=== PATIENT | male | born 1990 | race African-American/Black ===

== ENCOUNTER 2017-10-20 19:43 | Inpatient (IN) | payer OTHER ==
[~2017-10-20] VITALS: Ht 188 cm; Wt 133.5 kg
--- NOTE | 2017-10-20 20:14 | PHYS DOC ---
Past History Past Medical History: Hypertension, Seizure Adult General Chief Complaint Chief Complaint: ALTERED MENTAL STATUS HPI HPI Patient is a 27 year old M who presents with unresponsive from the skilled nursing. Patient was found in the showers with his close on unresponsive. For EMS patient did make some purposeful movements however upon arrival to the emergency room the patient was not responsive. Ammonia smelling salts were placed in the patient's nose in which he woke up however still not talking. Officers were at bedside who noted no trauma. Review of Systems Review of Systems Unable to obtain secondary to patient's clinical condition. All other systems were reviewed and found to be within normal limits, except as documented in this note. Allergies Allergies Allergies Coded Allergies Type Severity Reaction Last Updated Verified Penicillins Allergy Unknown Unknown 10/20/17 Yes amoxicillin Allergy Unknown Unknown 10/20/17 Yes Physical Exam Physical Exam GEN.: Severe distress. Unresponsive HEENT: Head is normocephalic, atraumatic NECK: Supple. LUNGS: CTAB. HEART: RRR, S1, S2 present. Peripheral pulses intact ABDOMEN: Soft, nontender. Positive bowel sounds. EXTREMITIES: Without any cyanosis. NEUROLOGIC: Unresponsive PSYCHIATRIC: Unable to obtain SKIN: No ulcerations Current Patient Data Vital Signs Vital Signs Date Time Temp Pulse Resp B/P (MAP) Pulse Ox O2 Delivery O2 Flow Rate FiO2 10/20/17 19:55 98.8 90 20 100 Room Air EKG EKG 2004: EKG shows normal sinus rhythm rate is 67 no STEMI[] Radiology/Procedures Radiology/Procedures Chest x-ray NAD CT scan head/C-spine no obvious abnormalities per radiology[] Course & Med Decision Making Course & Med Decision Making Pertinent Labs and Imaging studies reviewed. (See chart for details) ED course: Patient was seen and examined in the emergency room upon arrival an overdose workup was ordered along with a CT scan of the head Ammonia salts is placed in the right naris in which the patient woke up however is still not communicating Updated guards on lab results and plan to admit for altered mental status and possible toxic ingestion Patient will wake up periodically attempting to grab into thin air 2140: Discussed CC/HP/PMH with Dr. Esteban and recommends admit MDM: After reviewing the chart, CC/HPI/PMH, physical exam, [lab results], [ radiological results], due to the fact the patient's having continual altered mental status the patient will be admitted to the hospital for further evaluation and management and placed in ICU. At this time I do not believe the patient needs to be intubated and is protecting his airway. I believe the patient has a toxic ingestion. [] [] Dragon Disclaimer Dragon Disclaimer This electronic medical record was generated, in whole or in part, using a voice recognition dictation system. Departure Departure: Impression: Primary Impression: Altered mental status Additional Impression: Drug overdose Disposition: 09 ADMITTED INPATIENT Admitting Physician: Maximo Esteban Condition: GUARDED Problem Qualifiers RONEY HUDDLESTON DO Oct 20, 2017 20:14
[2017-10-20] MEDS ORDERED: LISI40TA PO (20:53)
[2017-10-20] MEDS ORDERED: GABA600T2 PO (20:53)
[2017-10-20] MEDS ORDERED: DIVA500T17 PO (20:53)
[2017-10-20 20:57] LABS: BASO % 1 % (0-3); EOS # 0.1 x10^3/uL (0.0-0.7); EOS % 3 % (0-3); HEMATOCRIT 46.2 % (39.0-53.0); HEMOGLOBIN 15.4 g/dL (13.0-17.5); LYMPH # 1.9 x10^3/uL (1.0-4.8); LYMPH % 40 % (24-48); MEAN CORPUSCULAR HEMOGLOBIN 29 pg (25-35); MEAN CORPUSCULAR HGB CONC 33 g/dL (31-37); MEAN CORPUSCULAR VOLUME 86 fL (79-100); MONO # 0.5 x10^3/uL (0.0-1.1); MONO % 11 % (0-9); NEUT # 2.1 x10^3uL (1.8-7.7); NEUT % 45 % (31-73); PLATELET COUNT 238 x10^3/uL (140-400); RED BLOOD COUNT 5.35 x10^6/uL (4.30-5.70); RED CELL DISTRIBUTION WIDTH 12.6 % (11.5-14.5); WHITE BLOOD COUNT 4.7 x10^3/uL (4.0-11.0)
[2017-10-20 21:12] LABS: AMPHETAMINE/METHAMPHETAMINE NEG (NEG); BARBITURATES NEG (NEG); BENZODIAZEPINES NEG (NEG); CANNABINOIDS NEG (NEG); COCAINE NEG (NEG); METHADONE NEG (NEG); OPIATES NEG (NEG); PHENCYCLIDINE NEG (NEG)
[2017-10-20 21:16] LABS: ALBUMIN 4.1 g/dL (3.4-5.0); ALBUMIN/GLOBULIN RATIO 1.1 (1.0-1.7); CALCIUM 9.3 mg/dL (8.5-10.1); CREATININE 1.2 mg/dL (0.7-1.3); GFR 87.2; POTASSIUM 3.6 mmol/L (3.5-5.1); TOTAL BILIRUBIN 0.3 mg/dL (0.2-1.0)
--- NOTE | 2017-10-20 21:25 | RAD ---
PQRS Compliance Statement: One or more of the following individualized dose reduction techniques were utilized for this examination: 1. Automated exposure control 2. Adjustment of the mA and/or kV according to patient size 3. Use of iterative reconstruction technique CT HEAD AND CERVICAL SPINE WITHOUT CONTRAST History: Found unresponsive Comparison: CT head and cervical spine without contrast December 25, 2016. MR brain December 13, 2016. Procedure: Axial images are obtained of the head from the skull base through the vertex without IV contrast. Noncontrast helical CT of the cervical spine was performed. Axial, sagittal, and coronal reconstructions were obtained. Findings: The ventricles and sulci are normal for the patient's age. Stable cystic lesion adjacent to the left frontal horn. Please refer to previous MR brain report for further details. No mass-effect, midline shift, hemorrhage or obvious acute infarction is identified. Basilar cisterns are patent. Bone windows demonstrate no significant calvarial abnormality. Mucosal thickening bilateral maxillary sinuses. Mastoid air cells are well aerated. There is no evidence of acute fracture or acute malalignment of the cervical spine. The vertebral body height and alignment are maintained. The facet joints are intact. Visualized soft tissues of the neck demonstrate no significant abnormalities. The visualized lung apices are clear. IMPRESSION: 1. No acute intracranial abnormality. 2. Stable small cystic lesion adjacent to the left frontal horn. Please refer to previous MR brain report for further details. 3. No acute fracture of the cervical spine. Electronically signed by: Jaswinder Matt MD (10/20/2017 9:22 PM) [facility]
[2017-10-20] MEDS ORDERED: ACETAMINOPHEN 325 MG TABLET PO PRN (21:45)
[2017-10-20] MEDS ORDERED: IV NORMAL SALINE 1,000ML 1,000 ML IV ONE (21:45)
[2017-10-20] MEDS ORDERED: ONDANSETRON PF 4 MG/2 ML VIAL. IV PRN (21:45)
--- NOTE | 2017-10-20 22:58 | EKG ---
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
[2017-10-20] MEDS: IV NORMAL SALINE 1,000ML 1,000 ML IV SCH (23:00)
[2017-10-20 23:03] VITALS: BP 158/91
[2017-10-21] VITALS (21 sets, daily range): BP systolic 103–199; BP diastolic 44–123
[2017-10-21] MEDS: IV NORMAL SALINE 1,000ML 1,000 ML IV SCH ×3 (01:08→17:45)
[2017-10-21 06:35] LABS: BASO % 1 % (0-3); EOS # 0.2 x10^3/uL (0.0-0.7); EOS % 4 % (0-3); HEMATOCRIT 42.7 % (39.0-53.0); HEMOGLOBIN 14.1 g/dL (13.0-17.5); LYMPH # 2.1 x10^3/uL (1.0-4.8); LYMPH % 36 % (24-48); MEAN CORPUSCULAR HEMOGLOBIN 29 pg (25-35); MEAN CORPUSCULAR HGB CONC 33 g/dL (31-37); MEAN CORPUSCULAR VOLUME 86 fL (79-100); MONO # 0.7 x10^3/uL (0.0-1.1); MONO % 13 % (0-9); NEUT # 2.6 x10^3uL (1.8-7.7); NEUT % 47 % (31-73); PLATELET COUNT 221 x10^3/uL (140-400); RED BLOOD COUNT 4.93 x10^6/uL (4.30-5.70); RED CELL DISTRIBUTION WIDTH 12.6 % (11.5-14.5); WHITE BLOOD COUNT 5.6 x10^3/uL (4.0-11.0)
[2017-10-21 06:38] LABS: ALBUMIN 3.4 g/dL (3.4-5.0); CALCIUM 8.7 mg/dL (8.5-10.1); CREATININE 0.9 mg/dL (0.7-1.3); GFR 121.6; POTASSIUM 3.6 mmol/L (3.5-5.1); TOTAL BILIRUBIN 0.6 mg/dL (0.2-1.0); TOTAL PROTEIN 6.7 g/dL (6.4-8.2)
--- NOTE | 2017-10-21 07:47 | RAD ---
Indication: Patient found unresponsive. Technique: AP upright portable chest radiograph was obtained. No comparison is available. Findings: The lungs are hypoinflated but are clear. The cardiomediastinal silhouette is within normal limits allowing for degree of inspiration. Bony structures appear intact. Impression: Low lung volume film. No acute thoracic findings.
[2017-10-21] MEDS: LABETALOL 20 MG/4 ML DISP.SYRIN. IVP PRN ×2 (08:09→10:08)
[2017-10-21] MEDS ORDERED: LABETALOL 20 MG/4 ML DISP.SYRIN. IVP PRN (10:30)
[2017-10-21] MEDS: hydrALAZINE 20 MG/ML VIAL. IV PRN ×2 (12:19→17:06)
--- NOTE | 2017-10-21 16:56 | CONS ---
DATE OF CONSULTATION: 10/21/2017 REFERRING PHYSICIAN: Maximo Esteban MD REASON FOR CONSULTATION: Unresponsiveness. HISTORY OF PRESENT ILLNESS: This is a 27-year-old -[place] male, who was admitted to the Emergency Room after he presented with being unresponsive. The patient was found in the shower this morning unresponsive. He was not able to move, walk or talk. There are no obvious injuries or trauma. The patient is aphasic and unable to provide any information. I have a chance to talk to a nurse at the present and she told me the patient has had one-sided weakness, but his speech always normal. He limps on one side and he sometimes uses a cane or walker. The patient was seen at in the past and brain MRI was performed, but the result is not available at this time. In the Emergency Room head CT scan revealed evidence of small cystic lesions adjacent to the left frontal horn. CT of the neck was unremarkable. PAST MEDICAL HISTORY: Significant for hypertension and possible seizure. FAMILY HISTORY: Not obtainable. SOCIAL HISTORY: The patient is an inmate. There is no history of smoking or alcohol drinking or illicit drug use. REVIEW OF SYSTEMS: Not obtainable because of mental status changes. PHYSICAL EXAMINATION: GENERAL: Obese -[place] male, not in acute distress. He weighs 291 pounds a high 74 inches. VITAL SIGNS: Blood pressure 199/123, respiratory rate 16, pulse is 60, afebrile, oxygen saturation 97% on room air. HEENT: Normocephalic, atraumatic, otherwise unremarkable. NECK: Supple. Negative for carotid bruit, lymphadenopathy, JVD or thyromegaly. LUNGS: Clear to A and P. CARDIOVASCULAR: Regular rate and rhythm, normal S1, S2. There is no S3, S4, murmur. ABDOMEN: Soft. Bowel sounds positive. EXTREMITIES: Negative for cyanosis, clubbing, pitting edema. NEUROLOGICAL: Mental Status: The patient is aphasic. Further evaluation is limited; however, the patient follows 1-step commands. When I asked him to make a fist and squeeze my hand. Cranial nerves: Pupils are equal and reactive to light. Extraocular movements are intact. There is no nystagmus. There is right facial asymmetry when I asked the patient to smile. Otherwise, further evaluation is limited. Motor examination: The patient has right hemiparesis and able to move his lower extremities; however, the strength in the right upper extremity is 4/5. Sensory examination revealed diminished pinprick and light touch senses over the right upper and lower extremities. Deep tendon reflexes were symmetric with equivocal Babinski on the right side and normal on the left side. Gait not tested as the patient is unresponsive. LABORATORY DATA: CBC revealed white blood cells of 5.6, hemoglobin 14.1, hematocrit 42.7, platelet count 221,000. Chemistry revealed sodium 142, potassium 3.6, chloride 106, CO2 of 28, BUN 8, creatinine 0.9, glucose 90, calcium 8.7. AST is low, but normal ALT. Troponin level is normal. Urine drug screen is negative. DIAGNOSTIC DATA: A nonenhanced head CT scan revealed evidence of small cystic lesion adjacent to the left frontal horn, otherwise unremarkable. CT of the neck is unremarkable and chest x-ray revealed no acute findings. IMPRESSION: 1. Dense right hemiparesis with aphasia, rule out left hemispheric pathology as infarct in a patient known with history of left frontal cystic lesions, which has been stable. 2. Hypertension. 3. Rule out seizure. RECOMMENDATION: 1.Correct hypertension. 2.Brain MRI with and without contrast. 3.EEG. M Josselin AVALOS MD DR: TJ/denise JOB#: [id number] / [id number]
[2017-10-22] VITALS (11 sets, daily range): BP systolic 120–167; BP diastolic 67–91
[2017-10-22] MEDS: hydrALAZINE 20 MG/ML VIAL. IV PRN ×2 (01:58→08:09)
[2017-10-22] MEDS ORDERED: ACETAMINOPHEN 325 MG SUPP.RECT PR PRN (06:15)
[2017-10-22] MEDS ORDERED: ACETAMINOPHEN 325 MG TABLET PO ONE (06:20)
[2017-10-22] MEDS ORDERED: ACETAMINOPHEN 325 MG TABLET PO PRN (06:30)
--- NOTE | 2017-10-22 09:58 | PN ---
DATE: 10/22/2017 SUBJECTIVE: The patient continued to have aphasia, unable to communicate and weakness of the right side, more prominent in the lower extremity. The patient also complains of headaches. OBJECTIVE: GENERAL: Obese right-handed male, not in acute distress. VITAL SIGNS: Blood pressure 167/91, respiratory 20, pulse is 86, temperature 98.7, oxygen saturation 96% on room air. HEENT: Normocephalic, atraumatic, otherwise unremarkable. NECK: Supple. Negative for carotid bruit, lymphadenopathy or thyromegaly. LUNGS: Clear to A and P. CARDIOVASCULAR: Regular rate and rhythm, normal S1, S2. There is no S3, S4, murmur. ABDOMEN: Soft. Bowel sounds positive. EXTREMITIES: Negative for cyanosis, clubbing or pitting edema. NEUROLOGIC: Mental status: The patient is awake, open eyes to commands. He follows 1-step commands. He is not able to talk. There is no facial motor or sensory deficits. Motor examination revealed right-sided weakness, more prominent in the lower extremity. Sensory examination revealed normal pinprick and light touch senses throughout. Deep tendon reflexes were symmetric and hypoactive without pathologic responses. Gait not tested. DIAGNOSTIC DATA: MRI with and without contrast revealed no evidence of acute intracranial process. Old cystic lesions in the left frontal lobe adjacent to lateral horn. 2. Hypertension. 3. History of stroke and possible seizure, not on anticonvulsant, with previous normal EEG. RECOMMENDATION: 1. Await for EEG today: 2. Correct the underlying hypertension. 3. Physical therapy as needed. 4. Tylenol for headaches. M Josselin AVALOS MD DR: TJ/denise JOB#: [id number] / [id number]
[2017-10-22] MEDS ORDERED: GABAPENTIN 300 MG CAPSULE. PO SCH (10:00)
[2017-10-22] MEDS ORDERED: DIVALPROEX ER 500 MG TAB.ER.24H PO SCH (10:00)
[2017-10-22] MEDS ORDERED: LISINOPRIL 20 MG TABLET PO SCH (10:00)
--- NOTE | 2017-10-22 13:41 | HP ---
ADMIT DATE: 10/20/2017 HISTORY OF PRESENT ILLNESS: The patient is a 27-year-old male patient, a resident at [facility], who apparently was found in the showers unresponsive. Apparently he did some purposeful movement; however, upon arrival to the Emergency Room, the patient was not responsive. Ammonia smelling socks were placed in the patient's nose in which he woke up; however, still not talking. Officers were there with him and there were no trauma noted. He apparently was extensively investigated in the Emergency Room and has had CT scan of the head as well as his cervical spine. The CT scan of the head showed the ventricles and sulci are normal for the patient's age and stable cystic lesion adjacent to the left frontal horn. No mass effect, midline shift, hemorrhage, or obvious acute infarction is identified. Basilar cisterns are patent. Bone windows demonstrate no significant calvarial abnormalities. Mucosal thickening was seen. Bilateral maxillary sinuses and mastoid air cells are well aerated. There is no evidence of acute fracture or acute malalignment of the cervical spine. The vertebral body heights and alignment are maintained. The facet joints are intact. Visualized soft tissue of the neck demonstrates no significant abnormalities. The visualized lung apices are clear. The patient was admitted to the ICU and was continued on IV fluid. We did consult Dr. Carroll for evaluation and treatment. The patient was nonverbal and was not taking anything by mouth. His blood pressure was noted to be high and was started on IV labetalol and hydralazine to control his blood pressure. Apparently, the patient had similar presentation to [facility] and [facility]. I spoke with the nursing staff at the facility and apparently, he did have no documented seizures, although he is already on Depakote 1000 mg twice a day. PAST MEDICAL HISTORY: Significant for traumatic brain injury with right-sided weakness. PAST SURGICAL HISTORY: Unremarkable. FAMILY HISTORY: Unremarkable. SOCIAL HISTORY: He is single, has been a smoker, does not use smokeless tobacco, does not drink alcohol. ALLERGIES: He apparently is allergic to AMOXICILLIN. MEDICATIONS: He is currently on following medications: He is on lisinopril 40 mg twice a day, divalproex 1000 mg twice a day, and gabapentin 600 mg twice a day. REVIEW OF SYSTEMS: As per history of present illness. PHYSICAL EXAMINATION: GENERAL: On arrival to the Emergency Room, he apparently was initially unresponsive. He woke up, continued to be nonverbal. He was somewhat pale, but not jaundiced, cyanosed, or thyromegaly. No jugular venous distension. No limb edema. VITAL SIGNS: His heart rate on arrival was 90, blood pressure was 155/108, temperature was 98.8, respiratory rate 20, and oxygen saturation was 100%. HEAD, EYES, EARS, NOSE, AND THROAT: Showed normocephalic, atraumatic. NECK: Supple. HEART: Showed normal first and second heart sounds with no gallop, rub, or murmur. CHEST: Clear to auscultation. No crepitation or rhonchi. ABDOMEN: Distended, soft, nontender. No guarding or rigidity. No organomegaly. Hernial orifice intact. Bowel sounds normal. NEUROLOGIC: He was awake, alert, but nonverbal. He seemed to have right-sided weakness. LABORATORY DATA: His lab work on admission showed a white cell count of 4700, hemoglobin 15, hematocrit 46, MCV 86, and platelet count of 238,000. His chemistry showed a serum sodium 139, potassium 3.6, chloride 103, bicarbonate 27, anion gap of 9, BUN 9, creatinine 1.2. Estimated GFR was 87 mL per minute, his glucose was 94, calcium was 9.3. Total bilirubin, AST, ALT, alkaline phosphatase were normal. Total protein was 8. Albumin was 4 and lipase was 97. His toxic screen was essentially negative. His nasal screen for MRSA by PCR was negative. They stated his chest x-ray showed that the lungs are hyperinflated but are clear. The cardiomediastinal silhouette is within normal limits, allowing for degree of inspiration. Bony structures appear intact. The CT scan of the head and neck and the cervical spine showed that there is no intracranial abnormality, stable small cystic lesion adjacent to the left frontal horn, and no acute fracture of the cervical spine. The patient was continued on IV fluid. We did consult Dr. Carroll for evaluation and treatment. The patient was nonverbal and was apparently unable to eat and drink on arrival and therefore he was started on IV labetalol and hydralazine to control his blood pressure. AIME PAULSON MD DR: DULCE MARIA/denise JOB#: [id number] / [id number]
--- NOTE | 2017-10-22 21:29 | PN ---
DATE: 10/20/2017 SUBJECTIVE: The patient was admitted on 10/20/2017 after he was found unresponsive in the shower. He continued to be nonverbal and he was extensively investigated at the Emergency Room prior to that admission and CT scan of the head revealed a stable small cystic lesion adjacent to the left frontal horn. He was seen by Dr. Carroll, who recommended doing an MRI of the brain with brain stem without and with contrast. According to the nursing staff, his blood pressure was extremely high and we did start him on IV labetalol and hydralazine to control his blood pressure. The patient was transported to [facility] where he has had an MRI done, which showed that there are no areas of abnormal contrast enhancement. There is a mucous retention cyst in the left maxillary sinus with mild mucosal thickening. There is moderate mucosal thickening of the right maxillary sinus. There is mild mucosal thickening involving the ethmoid air cells and frontal sinuses. The visualized portions of the mastoid air cells are unremarkable. The orbits appeared normal. The normal flow voids are demonstrated in the carotid arteries and basilar arteries and the impression is that the patient has a stable appearance of a 13 x 10 mm cystic area along the frontal horn of the left lateral ventricle immediately found ventral or involving the left caudate head. Differential consideration includes a dilated perivascular space versus neurological cyst versus congenital cyst, ependymal cyst. There is no evidence of acute or subacute ischemia. Apparently, the patient continued to be nonverbal, continued to be on IV fluid and IV blood pressure medication. PHYSICAL EXAMINATION: GENERAL: On examining him, he was resting slightly propped up in bed, in no apparent respiratory distress, and slightly pale. No jaundice, cyanosis, or thyromegaly. No jugular venous distension. No lower limb edema. VITAL SIGNS: His heart rate was 86, blood pressure was 157/85, temperature was 98.5, respiratory rate was 22, and oxygen saturation was 97%. The rest of clinical examination is stable and unremarkable. LABORATORY DATA: His lab work showed that his white cell count was 5600, hemoglobin 14, hematocrit 42, MCV 86, and platelet count 221,000. His chemistry showed a serum sodium 142, potassium 3.6, chloride 106, bicarbonate 28, anion gap of 8, BUN 8, creatinine 0.9. Estimated GFR was 121 mL per minute. His glucose was 90, calcium was 8.7. Total bilirubin, AST, ALT, alkaline phosphatase were normal. Total protein was 6.7, albumin was 3.4. ASSESSMENT AND PLAN: 1. In summary, this is a 27-year-old -[place] male patient, traumatic brain injury and right-sided weakness. His MRI showed that he has an old cystic lesion in the left frontal lobe and adjacent to the lateral horn. 2. Hypertension. He has history of cerebrovascular accident with he is already on Depakote 1000 mg twice a day. He was seen by Dr. Carroll, who recommended to do an EEG and to treat his blood pressure medication, which we are treating with IV hydralazine and labetalol, and consider physical therapy. AIME PAULSON MD DR: DULCE MARIA/denise JOB#: [id number] / [id number]
== END 2017-10-22 18:11 | disposition home or self-care (01) | DRG 918 ==
LOC: ER 19:43 → EEVIPCON 19:43 → ICU 21:38
PROVIDERS: ADMIT Internal Medicine; ATTEND Internal Medicine
DX: T50.901A Poisoning by unspecified drugs, medicaments and biological substances, accidental (unintentional), initial encounter (principal); G81.91 Hemiplegia, unspecified affecting right dominant side; R47.01 Aphasia; J34.1 Cyst and mucocele of nose and nasal sinus; F17.200 Nicotine dependence, unspecified, uncomplicated; I10 Essential (primary) hypertension; G93.9 Disorder of brain, unspecified; Z88.0 Allergy status to penicillin; Z88.8 Allergy status to other drugs, medicaments and biological substances; Z87.820 Personal history of traumatic brain injury; Y92.89 Other specified places as the place of occurrence of the external cause
CPT/HCPCS: 36415; 70450; 71045; 72125; 80053; 80307; 83605; 83690; 84484; 85025; 87641; 93005; 95816; G0480; J0360; J3490; 99285-25; G0479; J7030